=== PATIENT | male | born 1975 | race Two or more races ===

== ENCOUNTER 2023-04-03 19:09 | Emergency (ER) | payer SELFPAY ==
[~2023-04-03] VITALS: Ht 172.7 cm; Wt 68.0 kg
[2023-04-03 20:01] VITALS: TEMP 98.1
[2023-04-03] MEDS ORDERED: LEVO500T90 PO (20:44)
[2023-04-03] MEDS ORDERED: LEVOFLOXACIN (250MG) 250 MG TABLET ONE (20:44)
[2023-04-03] MEDS: LEVOFLOXACIN (250MG) 250 MG TABLET PO ONE (20:47)
[2023-04-04 01:05] VITALS: BP 143/77; O2SAT 96
== END 2023-04-04 01:05 | disposition home or self-care (01) ==
LOC: ER 19:24
DX: J18.9 Pneumonia, unspecified organism (principal)
CPT/HCPCS: 71045-TC; 82962-TC